=== PATIENT | male | born 1980 | race Asian ===

== ENCOUNTER 2017-09-26 15:54 | Emergency (ER) | payer MEDICAID ==
[~2017-09-26] VITALS: Ht 167.6 cm; Wt 81.7 kg
[~2017-09-26 15:54] MED LIST: ACIPHEX20 MG PO; AUGMENTIN 875-1 EACH PO; MOTRIN IB200 MG PO; NORCO 5-325 TA1 EACH PO; OMEPRAZOLE20 MG PO; XANAX0.5 MG PO
[2017-09-26] MEDS ORDERED: CLEOCIN HCL300 MG PO (16:39)
== END 2017-09-26 16:54 | disposition home or self-care (01) ==
LOC: ED 15:54
DX: J02.9 Acute pharyngitis, unspecified (principal); F41.9 Anxiety disorder, unspecified; Z79.899 Other long term (current) drug therapy
CPT/HCPCS: 99283

== ENCOUNTER 2021-09-18 10:17 | Emergency (ER) | payer OTHER ==
[~2021-09-18] VITALS: Ht 167.6 cm; Wt 84.8 kg
[~2021-09-18 10:17] MED LIST changes: +CLEOCIN HCL300 MG PO
== END 2021-09-18 19:36 | disposition home or self-care (01) ==
LOC: ED 10:17
DX: R42 Dizziness and giddiness (principal); R51.9 Headache, unspecified
CPT/HCPCS: 70450; 96372; 99284-25; J1885